=== PATIENT | female | born 1955 | race African-American/Black ===

== ENCOUNTER → 2018-05-25 | Outpatient (CLI) | payer BC, OTHER ==
[2015-08-07 21:47] VITALS: BP 121/72
--- NOTE | 2018-05-25 12:19 | RAD ---
DATE: 05/25/2018 EXAM: DIGITAL SCREEN BILAT W/CAD HISTORY: Previous right breast cancer COMPARISON: 11/09/2016 This study was interpreted with the benefit of Computerized Aided Detection (CAD). Breast Density: HETERO The breast parenchyma is heterogenously dense, which could reduce sensitivity of mammography. Breast parenchyma level C. FINDINGS: The right breast is small with skin deformity compatible with post therapeutic change. A similar appearance was present on the 11/09/2016 exam. No new or enlarging breast densities are seen. There are benign type calcifications in both breasts. No suspicious microcalcifications are evident. Benign-appearing lymph node type densities in the lateral left breast are unchanged. IMPRESSION: Stable mammograms without evidence of malignancy. BI-RADS CATEGORY: 2 BENIGN FINDING(S) RECOMMENDED FOLLOW-UP: 12M 12 MONTH FOLLOW-UP PQRS compliance statement: Patient information was entered into a reminder system with a target due date for the next mammogram. Mammography is a sensitive method for finding small breast cancers, but it does not detect them all and is not a substitute for careful clinical examination. A negative mammogram does not negate a clinically suspicious finding and should not result in delay in biopsying a clinically suspicious abnormality. "Our facility is accredited by the [employer] Mammography Program."
== END | disposition home or self-care (01) ==
LOC: MAMMO 08:08
PROVIDERS: ATTEND Family Medicine
DX: Z12.31 Encounter for screening mammogram for malignant neoplasm of breast (principal); E03.9 Hypothyroidism, unspecified; Z85.3 Personal history of malignant neoplasm of breast; Z90.710 Acquired absence of both cervix and uterus
CPT/HCPCS: 77067

== ENCOUNTER → 2019-01-10 | Outpatient (CLI) | payer OTHER ==
[2015-08-07 21:47] VITALS: BP 121/72
--- NOTE | 2019-01-10 10:08 | CARD ---
MR#: [id number] Date of Study: 01/10/2019 Ordering Physician: WILLY VELIZ, Referring Physician: WILLY VELIZ Tech: Kavya Navarro RDCS APPROVED REPORT EXAM: Two-dimensional and M-mode echocardiogram with Doppler and color Doppler. Other Information Quality : Good Technically limited study due to body habitus. INDICATION Murmur 2D DIMENSIONS RVDd2.4 (2.9-3.5cm)Left Atrium(2D)3.3 (1.6-4.0cm) IVSd0.8 (0.7-1.1cm)Aortic Root(2D)2.2 (2.0-3.7cm) LVDd4.8 (3.9-5.9cm)LVOT Diameter2.0 (1.8-2.4cm) PWd0.7 (0.7-1.1cm)LVDs3.4 (2.5-4.0cm) FS (%) 29.9 %SV62.5 ml LVEF(%)57.0 (>50%) Aortic Valve AoV Peak Rene.156.4cm/sAoV VTI32.6cm AO Peak GR.9.8mmHgLVOT Peak Rene.100.2cm/s LVOT VTI 23.56cmAO Mean GR.6mmHg BRENT (VMAX)2.46nc7ZJJ (VTI)2.30cm2 AI P 1/2 Sshg900ut Mitral Valve MV E Kudhrdrx170.2cm/sMV DECEL MJUN746vk MV A Mypwahmo706.6cm/sMV CTY11gc E/A Ratio0.9MVA (PHT)4.48cm2 TDI E/Lateral E'15.2E/Medial E'18.4 Tricuspid Valve TR P. Tqoyhhds903su/sRAP KGLDXUPH9psXq TR Peak Gr.72tuFnMPNF51ahYx Pulmonary Vein S1 Kltudceu45.1cm/sD2 Widtpani41.9cm/s LEFT VENTRICLE The left ventricle is normal size. There is normal left ventricular wall thickness. The left ventricu lar systolic function is normal and the ejection fraction is within normal range. The Ejection Fracti on is 55-60%. There is grossly normal LV segmental wall motion. Technically difficult images. Transmi tral Doppler flow pattern is Grade I-abnormal relaxation pattern. RIGHT VENTRICLE The right ventricle is normal size. The right ventricular systolic function is normal. ATRIA The left atrium size is normal. The right atrium size is normal. The interatrial septum is intact wit h no evidence for an atrial septal defect or patent foramen ovale as noted on 2-D or Doppler imaging. AORTIC VALVE The aortic valve is not well visualized but appears to be functioning normally by Doppler interrogati on. Doppler and Color Flow revealed trace to mild aortic regurgitation. There is no significant aorti c valvular stenosis. MITRAL VALVE The mitral valve is calcified but opens well. There is no evidence of mitral valve prolapse. There is no mitral valve stenosis. Doppler and Color-flow revealed mild mitral regurgitation. TRICUSPID VALVE The tricuspid valve is normal in structure and function. Doppler and Color Flow revealed trace to mil d tricuspid regurgitation. The PA pressure was estimated at 22 mmHg. There is no tricuspid valve sten osis. PULMONIC VALVE The pulmonic valve is not well visualized. Doppler and Color Flow revealed trace to mild pulmonic sofia vular regurgitation. There is no pulmonic valvular stenosis. GREAT VESSELS The aortic root is normal in size. The ascending aorta is normal in size. The IVC was not well visual ized. PERICARDIAL EFFUSION There is no evidence of significant pericardial effusion. Critical Notification Critical Value: No <Conclusion> The left ventricular systolic function is normal and the ejection fraction is within normal range. Th e Ejection Fraction is 55-60%. There is grossly normal LV segmental wall motion. Technically difficult images. Doppler and Color Flow revealed trace to mild aortic regurgitation. Signed by : Tyree Rothman, Electronically Approved : 01/10/2019 10:08:08
== END | disposition home or self-care (01) ==
LOC: ECHO 08:07
PROVIDERS: ATTEND Nurse Practitioner Gerontology
DX: I08.8 Other rheumatic multiple valve diseases (principal)
CPT/HCPCS: 93306

== ENCOUNTER → 2019-12-18 | Outpatient (CLI) | payer MEDICARE ==
[2015-08-07 21:47] VITALS: BP 121/72
--- NOTE | 2019-12-18 09:30 | RAD ---
Clinical History: Right upper quadrant abdominal pain Technique: Sonographic examination of the right upper quadrant of the abdomen was performed and multiple static images were obtained. Comparison: none Findings: The majority of the liver is visualized and appears homogeneous. There is increased echogenicity and attenuation of sound further limiting ultrasound sensitivity for possible solid liver lesion. The common bile duct is dilated and and measures 8 mm in diameter. The gallbladder has been removed. The pancreas is not well visualized due to overlying bowel gas. The right kidney appears normal and measures 10 cm in length. Impression: 1. Increased echogenicity of the liver is likely secondary to fatty infiltration. 2. Dilated common bile duct is not uncommon in a postcholecystectomy patient and is of uncertain chronicity. There is no bile duct stones seen. Electronically signed by: Preston Ibarra III, MD (12/18/2019 9:28 AM) [id number]
== END ==
LOC: US 10:34
PROVIDERS: ATTEND Nurse Practitioner Gerontology
DX: K83.8 Other specified diseases of biliary tract (principal); Z90.49 Acquired absence of other specified parts of digestive tract
CPT/HCPCS: 76705

== ENCOUNTER → 2021-12-23 | Day surgery (SDC) | payer MEDICARE ==
[~2021-12-23] VITALS: Ht 165.1 cm; Wt 78.0 kg
[~2021-12-23] MED LIST: LIDOCAINE 1%/EPI 1:100,000 20 ML VIAL. ONE; LIDOCAINE 2%/EPI 1:100,000 20 ML VIAL. IJ ONE
[2021-12-23 13:25] VITALS: BP 142/73
--- NOTE | 2021-12-24 07:42 | PDOC4 ---
Operative Note Operative Note Date: December 23, 2021 at 2 PM. Preoperative diagnosis: Sebaceous cyst of the back Postoperative diagnosis: Same Procedure: Excision of sebaceous cyst of the back Surgeon: González Specimen: Sebaceous cyst Dictation: Patient is a 66-year-old female was complained of a mass on her upper back has been getting larger and having drainage. Procedure of excision was explained to the patient detail risk benefits were also discussed including bleeding infection alternatives this procedure also discussed with the patient who seemed to understand and gave a verbal written consent had procedure performed. Patient was taken to the minor's room placed in the prone positioning her back was prepped and draped usual sterile fashion using ChloraPrep. Area around the mass was injected with 1% lidocaine with epinephrine once this was anesthetized an elliptical incision was made with 15 blade scalpel through the skin carried down through the subcutaneous tissue excising the sebaceous cyst. Size of the cyst 1 x 1 cm with no margin. The wound was then closed in a single layer of 3-0 nylon and single interrupted sutures. Dressed with 4 x 4's and Medipore tape. Patient tolerated she did well was discharged home in stable condition all sponge instrument needle counts listed as correct estimated blood loss less than 5 mL JOANNE PERALTA MD Dec 24, 2021 07:42
--- NOTE | 2021-12-24 18:31 | PATHOLOGY ---
[facility] Accession Number: [id number] . 01 Material submitted: . back - UPPER BACK MASS. Modifiers: upper . 01 Clinical history: . EXCISION OF SEBACEOUS CYST OF THE BACK . 02 Diagnosis: Skin and keratinaceous material, upper back mass, excision: - Epidermal inclusion cyst, with acute and chronic inflammation. (JPM:tommy; 12/24/2021) MBR 12/24/2021 1329 Local . 02 Comment: There is no evidence of malignancy. (JPM:tommy; 12/24/2021) . 02 Electronically signed: . Kenny Salmeron MD, Pathologist NPI- [id number] . 01 Gross description: . The specimen is received in formalin, labeled "Juliane Dwyer, upper back mass". Received is an ellipse of skin measuring 2.2 x 0.6 x 0.6 cm in greatest dimension. The epidermal surface is dark musa, wrinkled and displays a centrally located, red-brown punctation measuring 0.2 x 0.2 cm. Deep to the epidermal surface is a possible previously ruptured cystic structure measuring 0.8 cm. The surgical margin is inked. The specimen is serially sectioned and submitted representatively in cassette A1. Also received with the specimen container is a segment of dark brown, friable soft tissue measuring 1.5 x 1.0 x 0.8 cm in greatest dimension. A care support representative section is submitted in cassette A2. ([facility]; 12/23/2021) NRI/NRI 12/24/2021 1328 Local . 02 Pathologist provided ICD-10: L72.0, L08.9 . 02 CPT . 371511 Specimen Comment: A courtesy copy of this report has been sent to [phone], [phone] Specimen Comment: [id number] Specimen Comment: Report sent to / DR LUIS Performed at: [address] [id number] MD Bossman Estevez MD Phone: [phone] [facility] [address] [place], [place] [id number] MD Kenny Salmeron MD Phone: [phone]
== END | disposition home or self-care (01) ==
LOC: SURG 13:25
PROVIDERS: ATTEND Surgery
DX: L72.3 Sebaceous cyst (principal); L08.9 Local infection of the skin and subcutaneous tissue, unspecified; I10 Essential (primary) hypertension; K21.9 Gastro-esophageal reflux disease without esophagitis; E03.9 Hypothyroidism, unspecified; Z85.3 Personal history of malignant neoplasm of breast; Z90.49 Acquired absence of other specified parts of digestive tract; Z90.710 Acquired absence of both cervix and uterus; Z98.890 Other specified postprocedural states; Z79.899 Other long term (current) drug therapy
CPT/HCPCS: 11401; J3490; 88304